=== PATIENT | female | born 1995 | race Caucasian/White ===

== ENCOUNTER 2017-08-04 17:11 | Emergency (ER) | payer BC ==
[~2017-08-04] VITALS: Ht 172.7 cm; Wt 72.2 kg
[~2017-08-04 17:11] MED LIST: ALBUTEROL SULF8.5 GM IH; HYCODAN SYRUP480 ML PO; NOHOMEMEDS; PREDNISONE20 MG PO; TESSALON200 MG PO; ULTRAM50 MG PO; no home
[2017-08-04 17:56] LABS: HEMATOCRIT 37.3 % (36.0-46.0); HEMOGLOBIN 13.1 G/DL (11.9-15.5); MCH 30.1 PG (29.0-34.0); MCHC 35.1 G/DL (30.0-36.0); MCV 85.7 FL (83-99); PLATELET COUNT 179 K/uL (156-360); RBC DIS.WIDTH-CV 11.9 % (11.8-14.6); RBC DIS.WIDTH-SD 37.3 % (39-53); RED BLOOD COUNT 4.35 M/uL (3.80-5.20); WHITE BLOOD COUNT 5.5 K/uL (4.1-10.2)
[2017-08-04 18:04] LABS: APPEARANCE CLEAR ((CLEAR)); BILIRUBIN NEGATIVE; BLOOD NEGATIVE; COLOR STRAW ((YELLOW)); GLUCOSE (STRIP) NEGATIVE; KETONES NEGATIVE; LEUKOCYTES NEGATIVE; NITRITE NEGATIVE; PROTEIN (STRIP) NEGATIVE; SPECIFIC GRAVITY 1.005 (1.000-1.030); UCUL ADDED? NO; UROBILINOGEN 0.2 MG/DL (0.2-1.0)
[2017-08-04 18:07] LABS: CHLORIDE 110 mEq/L (99-109); POTASSIUM 4.2 mEq/L (3.7-5.4); SODIUM 142 mEq/L (136-147)
[2017-08-04 18:09] LABS: GLUCOSE 96 mg/dL (70-99)
[2017-08-04 18:13] LABS: CREATININE 0.7 mg/dL (0.6-1.3); GFR ESTIMATE (CALCULATED) > 59 mL/min/
[2017-08-04 18:14] LABS: UREA NITROGEN (BUN) 5 mg/dL (9-23)
[2017-08-04 18:41] LABS: ALBUMIN 4.2 g/dL (3.2-4.8)
[2017-08-04 18:46] LABS: TOTAL BILIRUBIN 0.4 mg/dL (0.0-1.0)
[2017-08-04 18:47] LABS: ALKALINE PHOSPHATASE 45 IU/L (3-129)
[2017-08-04 18:49] LABS: AST (GOT) 14 IU/L (2-34)
[2017-08-04 18:50] LABS: ALT (GPT) 10 IU/L (3-49); DIRECT BILIRUBIN 0.2 mg/dL (0.0-0.3)
[2017-08-04 18:51] LABS: LIPASE 21 U/L (1.0-51.0)
[2017-08-04] MEDS ORDERED: ZOFRAN ODT4 MG PO (19:37)
[2017-08-04] MEDS ORDERED: MOTRIN600 MG PO (19:37)
[2017-08-04 19:53] VITALS: BP 131/80
== END 2017-08-04 19:53 | disposition home or self-care (01) ==
LOC: EME 17:11
DX: R10.9 Unspecified abdominal pain (principal); R30.0 Dysuria; R11.0 Nausea; Z87.442 Personal history of urinary calculi; Z88.1 Allergy status to other antibiotic agents
CPT/HCPCS: 74176; 80048; 80076; 81003; 83690; 85027; 99281; 99284